=== PATIENT | male | born 1940 | race Caucasian/White ===

== ENCOUNTER 2017-01-26 18:39 | Emergency (ER) | payer OTHER, MEDICAID ==
[~2017-01-26] VITALS: Ht 188 cm; Wt 85.0 kg
[~2017-01-26 18:39] MED LIST: AMITRIPTYLINE; LISI2.5T PO; METFORMIN; PRIMIDONE
[2017-01-26 20:00] LABS: HEMOGLOBIN 14.7 g/dL (13.7-18.0)
[2017-01-26 20:12] LABS: ASPARTATE AMINO TRANSFERASE 10 U/L (15-37); BLOOD UREA NITROGEN 13 mg/dL (7-18)
[2017-01-26 20:19] LABS: IS PT STATUS REG ER OR PRE ER? YES
[2017-01-26] MEDS ORDERED: HYDROcodone/APAP 5/325 TABLET ONE (21:16)
[2017-01-26] MEDS ORDERED: METHOCARBAMOL 750 MG TABLET ONE (21:16)
[2017-01-26] MEDS ORDERED: KETOROLAC 30 MG/1 ML ONE (21:16)
[2017-01-26] MEDS ORDERED: KETOROLAC 30 MG/1 ML IVPush ONE (21:30)
[2017-01-26] MEDS ORDERED: PLEASE ENTER HEIGHT AND WEIGHT MC SCH (21:30)
[2017-01-26] MEDS ORDERED: HYDROcodone/APAP 5/325 TABLET PO ONE (21:30)
[2017-01-26] MEDS ORDERED: METHOCARBAMOL 750 MG TABLET PO ONE (21:30)
[2017-01-26 22:43] VITALS: BP 141/72
== END 2017-01-26 23:52 | disposition home or self-care (01) ==
LOC: ED 20:25
DX: S39.012A Strain of muscle, fascia and tendon of lower back, initial encounter (principal); R53.1 Weakness; I11.0 Hypertensive heart disease with heart failure; I50.9 Heart failure, unspecified; E11.9 Type 2 diabetes mellitus without complications; W19.XXXA Unspecified fall, initial encounter; Y93.89 Activity, other specified; Y99.8 Other external cause status; Y92.009 Unspecified place in unspecified non-institutional (private) residence as the place of occurrence of the external cause
CPT/HCPCS: 36415; 71010; 72110; 80053; 80162; 81003; 84484; 85025; 93005; 96374; 99285; J1885

== ENCOUNTER 2017-03-26 14:10 | Emergency (ER) | payer OTHER, MEDICAID ==
[~2017-03-26] VITALS: Ht 188 cm; Wt 82.0 kg
[2017-03-26] MEDS ORDERED: ONDANSETRON 2MG/ML, 2ML IVPush ONE (14:30)
[2017-03-26] MEDS ORDERED: SODIUM CHLORIDE FLUSH 10ML SYR IVF ONE (14:30)
[2017-03-26] MEDS ORDERED: MORPHINE SULFATE 4 MG/ML, 1ML IVPush PRN (14:30)
[2017-03-26] MEDS ORDERED: MORPHINE SULFATE 4 MG/ML, 1ML ONE (14:40)
[2017-03-26] MEDS ORDERED: ONDANSETRON 2MG/ML, 2ML ONE (14:40)
[2017-03-26 15:12] LABS: BLOOD UREA NITROGEN 11 mg/dL (7-18)
[2017-03-26] MEDS ORDERED: KETOROLAC 30 MG/1 ML ONE (16:17)
[2017-03-26] MEDS ORDERED: KETOROLAC 30 MG/1 ML IVPush ONE (16:30)
[2017-03-26 18:25] VITALS: BP 118/70
== END 2017-03-26 18:27 | disposition home or self-care (01) ==
LOC: ED 14:39
DX: S32.039A Unspecified fracture of third lumbar vertebra, initial encounter for closed fracture (principal); E11.9 Type 2 diabetes mellitus without complications; I11.0 Hypertensive heart disease with heart failure; I50.9 Heart failure, unspecified; M81.0 Age-related osteoporosis without current pathological fracture; W19.XXXA Unspecified fall, initial encounter; Y93.89 Activity, other specified; Y92.89 Other specified places as the place of occurrence of the external cause; Y99.8 Other external cause status
CPT/HCPCS: 36415; 72148; 80048; 82040; 85025; 96374; 96375; 99285; J1885; J2405

== ENCOUNTER → 2018-04-03 | Outpatient (CLI) | payer MEDICARE, MEDICAID | LOC: CFH 10:09 | PROVIDERS: ATTEND Family Medicine | DX: M48.56XA Collapsed vertebra, not elsewhere classified, lumbar region, initial encounter for fracture (principal); M51.16 Intervertebral disc disorders with radiculopathy, lumbar region; M48.061 Spinal stenosis, lumbar region without neurogenic claudication | CPT/HCPCS: 72148 ==

== ENCOUNTER 2018-06-26 11:05 | Observation (INO) | payer MEDICARE, MEDICAID ==
[~2018-06-26] VITALS: Ht 180.3 cm; Wt 77.7 kg
[2018-06-26] MEDS ORDERED: MORPHINE SULFATE 4 MG/ML, 1ML IVPush PRN (12:30)
[2018-06-26 13:27] LABS: BASOPHILS # (AUTO) 0.02 x10^3/uL (0-0.1); BASOPHILS % (AUTO) 0 % (0-1); EOSINOPHILS # (AUTO) 0.16 x10^3/uL (0-0.4); EOSINOPHILS % (AUTO) 2 % (1-7); LYMPHOCYTES # (AUTO) 1.64 x10^3/uL (1-3.4); LYMPHOCYTES % (AUTO) 18 % (22-44); MD NO; MEAN CORPUSCULAR HEMOGLOBIN 30.8 pg (27.5-34.5); MEAN CORPUSCULAR HGB CONC 34.2 g/dL (33.2-36.2); MEAN CORPUSCULAR VOLUME 90.3 fL (81-97); MEAN PLATELET VOLUME 8.5 fL (7.4-10.4); MONOCYTES # (AUTO) 0.98 x10^3/uL (0.2-0.8); MONOCYTES % (AUTO) 11 % (2-9); NEUTROPHILS # (AUTO) 6.53 x10^3/uL (1.8-6.8); NEUTROPHILS % (AUTO) 70 % (42-75); PLATELET COUNT 259 x10^3/uL (130-400); RED BLOOD COUNT 4.01 x10^6/uL (4.38-5.82); RED CELL DISTRIBUTION WIDTH 15.8 % (9.4-14.8)
[2018-06-26 13:34] LABS: INTERNATIONAL NORMALIZED RATIO 1.03 (0.93-1.1); PROTHROMBIN TIME 10.6 Seconds (9.6-11.5)
[2018-06-26 13:35] LABS: ALANINE AMINOTRANSFERASE 12 U/L (12-78); ALBUMIN 3.4 g/dL (3.4-5.0); ANION GAP 5 mmol/L (5-15); CALCIUM 8.9 mg/dL (8.5-10.1); CHLORIDE 103 mmol/L (98-107); CREATININE 0.94 mg/dL (0.7-1.3)
[2018-06-26 13:38] LABS: ALKALINE PHOSPHATASE 132 U/L (45-117); BILIRUBIN,TOTAL 0.2 mg/dL (0.2-1.0); TOTAL PROTEIN 6.7 g/dL (6.4-8.2)
[2018-06-26] MEDS ORDERED: MORPHINE SULFATE 4 MG/ML, 1ML ONE (15:14)
[2018-06-26] MEDS ORDERED: METF750T2 PO (15:22)
[2018-06-26] MEDS ORDERED: PRIM250T PO (15:22)
[2018-06-26] MEDS ORDERED: DIGO125T PO (15:22)
[2018-06-26] MEDS ORDERED: ROSU20TA PO (15:22)
[2018-06-26] MEDS ORDERED: ASPI-496 PO (15:22)
[2018-06-26] MEDS ORDERED: METO25TA91 PO (15:22)
[2018-06-26] MEDS ORDERED: LISI40TA PO (15:22)
[2018-06-26] MEDS ORDERED: METO-95 PO (15:22)
[2018-06-26] MEDS ORDERED: SODIUM CHLORIDE 0.9% 1,000 ML IV SCH (15:50)
[2018-06-26] MEDS ORDERED: GLUCAGON 1 MG IM PRN (16:00)
[2018-06-26] MEDS ORDERED: morphine SULFATE 10 MG/ML, 1ML IVPush PRN (16:00)
[2018-06-26] MEDS ORDERED: DEXTROSE 4 GM TAB.CHEW PO PRN (16:00)
[2018-06-26] MEDS ORDERED: ACETAMINOPHEN 325 MG TABLET PO PRN (16:00)
[2018-06-26] MEDS ORDERED: POLYETHYLENE GLYCOL 17 GM PACKET PO PRN (16:00)
[2018-06-26] MEDS ORDERED: ONDANSETRON ODT 4 MG PO PRN (16:00)
[2018-06-26] MEDS ORDERED: DEXTROSE 50%, 50ML SYRINGE IVPush PRN (16:00)
[2018-06-26] MEDS ORDERED: BISACODYL 10 MG SUPP PR PRN (16:00)
[2018-06-26 17:22] VITALS: BP 148/79
[2018-06-26] MEDS: INSULIN LISPRO 100 UNITS/ML, PEN SQ-INSULIN SCH ×2 (18:45→21:00)
[2018-06-26 18:58] VITALS: BP 127/66
[2018-06-26] MEDS: SODIUM CHLORIDE FLUSH 10ML SYR IVF SCH (20:57)
[2018-06-26] MEDS ORDERED: TEMPLATE NON-FORMULARY MED. (Rosuvastatin Calcium** (Crestor**) 20 MG) PO SCH (21:00)
[2018-06-26] MEDS: PRIMIDONE 250 MG TABLET PO SCH (21:00)
[2018-06-26] MEDS: ATORVASTATIN 40 MG TABLET PO SCH (21:00)
[2018-06-27 01:22] VITALS: BP 122/71
[2018-06-27 05:48] LABS: ALBUMIN 2.9 g/dL (3.4-5.0); ANION GAP 6 mmol/L (5-15); CALCIUM 8.2 mg/dL (8.5-10.1); CHLORIDE 107 mmol/L (98-107)
[2018-06-27 06:05] LABS: BASOPHILS # (AUTO) 0.03 x10^3/uL (0-0.1); BASOPHILS % (AUTO) 0 % (0-1); EOSINOPHILS # (AUTO) 0.17 x10^3/uL (0-0.4); EOSINOPHILS % (AUTO) 3 % (1-7); LYMPHOCYTES # (AUTO) 1.08 x10^3/uL (1-3.4); LYMPHOCYTES % (AUTO) 18 % (22-44); MD NO; MEAN CORPUSCULAR HEMOGLOBIN 30.2 pg (27.5-34.5); MEAN CORPUSCULAR HGB CONC 33.8 g/dL (33.2-36.2); MEAN CORPUSCULAR VOLUME 89.3 fL (81-97); MEAN PLATELET VOLUME 8.3 fL (7.4-10.4); MONOCYTES # (AUTO) 0.78 x10^3/uL (0.2-0.8); MONOCYTES % (AUTO) 13 % (2-9); NEUTROPHILS # (AUTO) 3.86 x10^3/uL (1.8-6.8); NEUTROPHILS % (AUTO) 65 % (42-75); PLATELET COUNT 235 x10^3/uL (130-400); RED BLOOD COUNT 3.68 x10^6/uL (4.38-5.82)
[2018-06-27 06:10] LABS: ALANINE AMINOTRANSFERASE 11 U/L (12-78); ALKALINE PHOSPHATASE 123 U/L (45-117); BILIRUBIN,TOTAL 0.4 mg/dL (0.2-1.0); CREATININE 0.53 mg/dL (0.7-1.3)
[2018-06-27] MEDS: INSULIN LISPRO 100 UNITS/ML, PEN SQ-INSULIN SCH ×4 (06:36→20:47)
[2018-06-27 06:43] VITALS: BP 127/62
[2018-06-27] MEDS: SODIUM CHLORIDE FLUSH 10ML SYR IVF SCH ×2 (09:00→20:43)
[2018-06-27] MEDS: METOPROLOL SUCCINATE 25 MG TAB.ER.24H PO SCH (09:28)
[2018-06-27] MEDS: PRIMIDONE 250 MG TABLET PO SCH ×2 (09:28→20:43)
[2018-06-27] MEDS: LISINOPRIL 20 MG TABLET PO SCH (09:28)
[2018-06-27] MEDS: SENNA/DOCUSATE TABLET PO SCH (09:29)
[2018-06-27] MEDS: DIGOXIN 0.125 MG TABLET PO SCH (09:29)
[2018-06-27 15:35] VITALS: BP 121/61
[2018-06-27 19:01] VITALS: BP 139/71
[2018-06-27] MEDS: ATORVASTATIN 40 MG TABLET PO SCH (20:42)
[2018-06-28 00:09] VITALS: BP 147/67
[2018-06-28] MEDS: INSULIN LISPRO 100 UNITS/ML, PEN SQ-INSULIN SCH ×4 (06:20→20:40)
[2018-06-28 06:59] VITALS: BP 143/75
[2018-06-28] MEDS: SODIUM CHLORIDE FLUSH 10ML SYR IVF SCH ×2 (09:00→20:40)
[2018-06-28] MEDS: SENNA/DOCUSATE TABLET PO SCH (09:51)
[2018-06-28] MEDS: LISINOPRIL 20 MG TABLET PO SCH (09:51)
[2018-06-28] MEDS: METOPROLOL SUCCINATE 25 MG TAB.ER.24H PO SCH (09:52)
[2018-06-28] MEDS: PRIMIDONE 250 MG TABLET PO SCH ×2 (09:52→20:40)
[2018-06-28] MEDS: DIGOXIN 0.125 MG TABLET PO SCH (09:52)
[2018-06-28] MEDS ORDERED: TRAM50TA2 PO (12:12)
[2018-06-28] MEDS ORDERED: METO25TA91 PO (12:12)
[2018-06-28 13:20] VITALS: BP 102/53
[2018-06-28 20:22] VITALS: BP 136/63
[2018-06-28] MEDS ORDERED: CALCIUM CARBONATE 500 MG TAB.CHEW PO PRN (20:30)
[2018-06-28] MEDS: ATORVASTATIN 40 MG TABLET PO SCH (20:40)
[2018-06-29 02:09] VITALS: BP 131/69
[2018-06-29] MEDS: INSULIN LISPRO 100 UNITS/ML, PEN SQ-INSULIN SCH ×2 (07:00→11:00)
[2018-06-29 07:54] VITALS: BP 127/64
[2018-06-29] MEDS: SODIUM CHLORIDE FLUSH 10ML SYR IVF SCH (09:00)
[2018-06-29] MEDS: DIGOXIN 0.125 MG TABLET PO SCH (09:15)
[2018-06-29] MEDS: SENNA/DOCUSATE TABLET PO SCH (09:15)
[2018-06-29] MEDS: METOPROLOL SUCCINATE 25 MG TAB.ER.24H PO SCH (09:16)
[2018-06-29] MEDS: PRIMIDONE 250 MG TABLET PO SCH (09:16)
[2018-06-29] MEDS: LISINOPRIL 20 MG TABLET PO SCH (09:16)
[2018-06-29 12:22] VITALS: BP 111/54
[2018-06-29] MEDS ORDERED: ASPIRIN 325 MG TABLET EC PO SCH (16:00)
[2018-06-29] MEDS ORDERED: ENOXAPARIN 40 MG/0.4 ML SQ SCH (16:00)
[2018-06-29] MEDS ORDERED: metFORMIN 850 MG TABLET PO SCH (17:00)
== END 2018-06-29 15:54 ==
LOC: ED 15:17 → EDIP 15:18 → INTOOBSV 15:18 → ED 15:49 → UNDOADMIN 15:50 → EDIP 15:50 → ED 16:03 → 4NOR 17:10
PROVIDERS: ADMIT Hospitalist; ATTEND Family Medicine
DX: S82.141A Displaced bicondylar fracture of right tibia, initial encounter for closed fracture (principal); D64.9 Anemia, unspecified; E87.1 Hypo-osmolality and hyponatremia; J98.11 Atelectasis; I10 Essential (primary) hypertension; E11.9 Type 2 diabetes mellitus without complications; R25.1 Tremor, unspecified; M81.0 Age-related osteoporosis without current pathological fracture; I25.10 Atherosclerotic heart disease of native coronary artery without angina pectoris; I25.2 Old myocardial infarction; W18.39XA Other fall on same level, initial encounter; Y93.89 Activity, other specified; Y92.89 Other specified places as the place of occurrence of the external cause; Y99.8 Other external cause status; Z79.82 Long term (current) use of aspirin
CPT/HCPCS: 36415; 71045; 73552; 73564; 73590; 73700; 80053; 80162; 82306; 82962; 83735; 85025; 85610; 85730; 93005; 96374; 96376; 97162; 97530; 99285; G0378; G8978; G8979; G8980; J2270; J7030

== ENCOUNTER 2019-05-08 19:49 | Observation (INO) | payer MEDICAID, MEDICARE ==
[~2019-05-08] VITALS: Ht 188 cm; Wt 75.9 kg
[~2019-05-08 19:49] MED LIST changes: +ASPI-496 PO; +DIGO125T PO; +LISI40TA PO; +METF750T2 PO; +METO-95 PO; +METO25TA91 PO; +PRIM250T PO; +ROSU20TA2 PO; +TRAM50TA2 PO
--- NOTE | 2019-05-08 20:04 | NUR ---
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 EMT STATED PT LIVES IN HIS CAR FOR PAST FEW MONTHS. EKG SR WITH OCCASSIONAL PAC/PVC'S, HR-70'S, B/P-123/70, SPO2 95% R/A, FSBS-101. MONITORS APPLIED, SIDERAILS UP X2, CALL LIGHT WITHIN REACH. ERP AT BEDSIDE FOR EVAL
[2019-05-08 20:30] LABS: BASOPHILS # (AUTO) 0.03 x10^3/uL (0-0.1); BASOPHILS % (AUTO) 0 % (0-1); EOSINOPHILS # (AUTO) 0.43 x10^3/uL (0-0.4); EOSINOPHILS % (AUTO) 6 % (1-7); LYMPHOCYTES # (AUTO) 1.57 x10^3/uL (1-3.4); LYMPHOCYTES % (AUTO) 23 % (22-44); MD NO; MEAN CORPUSCULAR HEMOGLOBIN 27.7 pg (27.5-34.5); MEAN CORPUSCULAR HGB CONC 32.6 g/dL (33.2-36.2); MEAN PLATELET VOLUME 8.3 fL (7.4-10.4); MONOCYTES # (AUTO) 0.83 x10^3/uL (0.2-0.8); MONOCYTES % (AUTO) 12 % (2-9); NEUTROPHILS # (AUTO) 3.91 x10^3/uL (1.8-6.8); NEUTROPHILS % (AUTO) 58 % (42-75); PLATELET COUNT 211 x10^3/uL (130-400); RED CELL DISTRIBUTION WIDTH 20.1 % (9.4-14.8)
[2019-05-08 20:41] LABS: INTERNATIONAL NORMALIZED RATIO 1.01 (0.93-1.1); PROTHROMBIN TIME 10.6 Seconds (9.6-11.5)
[2019-05-08 20:42] LABS: ALANINE AMINOTRANSFERASE 7 U/L (12-78); ALBUMIN 3.1 g/dL (3.4-5.0); ANION GAP 10 mmol/L (5-15); CALCIUM 8.5 mg/dL (8.5-10.1); CHLORIDE 104 mmol/L (98-107)
[2019-05-08 20:47] LABS: ALKALINE PHOSPHATASE 121 U/L (45-117); BILIRUBIN,TOTAL 0.2 mg/dL (0.2-1.0); CREATININE 0.89 mg/dL (0.7-1.3); TOTAL PROTEIN 6.3 g/dL (6.4-8.2); TROPONIN I < 0.015 ng/mL (0.000-0.045)
--- NOTE | 2019-05-08 20:58 | NUR ---
PT UP TO RR WITH WALKER AND STANDBY ASSIST, TOLERATED TRANSFER WELL. PROVIDED PT WITH URINE CUP FOR SAMPLE
[2019-05-08 21:40] LABS: MICROSCOPIC NOT IND
[2019-05-08 21:42] LABS: CULTURE INDICATED? NO
--- NOTE | 2019-05-08 21:52 | NUR ---
LY WITH EYES CLOSED, OPENS EYES EASILY TO VERBAL RESPOSE, DENIES NEEDS, MONITORS IN PLACE, CALL LIGHT WITHIN REACH. AWAITING ROOM FOR ADMIT
[2019-05-08] MEDS ORDERED: POLYETHYLENE GLYCOL 17 GM PACKET PO PRN (22:30)
[2019-05-08] MEDS ORDERED: BISACODYL 10 MG SUPP PR PRN (22:30)
[2019-05-08] MEDS ORDERED: ONDANSETRON ODT 4 MG PO PRN (22:30)
[2019-05-08] MEDS ORDERED: ACETAMINOPHEN 325 MG TABLET PO PRN (22:30)
[2019-05-08 22:35] VITALS: BP 137/76
[2019-05-08 23:01] LABS: HEMOGLOBIN A1C 5.4 % (4.2-6.3)
[2019-05-09 01:53] VITALS: BP 166/69
[2019-05-09 06:20] LABS: BASOPHILS # (AUTO) 0.05 x10^3/uL (0-0.1); BASOPHILS % (AUTO) 1 % (0-1); EOSINOPHILS # (AUTO) 0.39 x10^3/uL (0-0.4); EOSINOPHILS % (AUTO) 5 % (1-7); LYMPHOCYTES # (AUTO) 1.89 x10^3/uL (1-3.4); LYMPHOCYTES % (AUTO) 22 % (22-44); MD NO; MEAN CORPUSCULAR HEMOGLOBIN 28.5 pg (27.5-34.5); MEAN CORPUSCULAR VOLUME 86.4 fL (81-97); MEAN PLATELET VOLUME 8.6 fL (7.4-10.4); MONOCYTES # (AUTO) 0.84 x10^3/uL (0.2-0.8); MONOCYTES % (AUTO) 10 % (2-9); NEUTROPHILS # (AUTO) 5.29 x10^3/uL (1.8-6.8); NEUTROPHILS % (AUTO) 63 % (42-75); PLATELET COUNT 233 x10^3/uL (130-400); RED BLOOD COUNT 3.94 x10^6/uL (4.38-5.82); RED CELL DISTRIBUTION WIDTH 20.4 % (9.4-14.8)
[2019-05-09 06:28] LABS: ALANINE AMINOTRANSFERASE 8 U/L (12-78); ALBUMIN 3.3 g/dL (3.4-5.0); ANION GAP 7 mmol/L (5-15); CALCIUM 8.9 mg/dL (8.5-10.1); CHLORIDE 106 mmol/L (98-107); CREATININE 0.69 mg/dL (0.7-1.3)
[2019-05-09 06:30] LABS: ALKALINE PHOSPHATASE 132 U/L (45-117); BILIRUBIN,TOTAL 0.2 mg/dL (0.2-1.0); TOTAL PROTEIN 6.6 g/dL (6.4-8.2)
[2019-05-09 07:33] VITALS: BP 135/52
[2019-05-09] MEDS: ASPIRIN 325 MG TABLET EC PO SCH (08:11)
[2019-05-09] MEDS: PRIMIDONE 250 MG TABLET PO SCH ×2 (08:12→20:10)
[2019-05-09] MEDS: SENNA/DOCUSATE TABLET PO SCH (08:13)
[2019-05-09] MEDS: LISINOPRIL 40 MG TABLET PO SCH (08:13)
[2019-05-09] MEDS: METOPROLOL SUCCINATE 25 MG TAB.ER.24H PO SCH (08:14)
[2019-05-09] MEDS: DIGOXIN 0.125 MG TABLET PO SCH (08:16)
[2019-05-09] MEDS: metFORMIN 850 MG TABLET PO SCH ×2 (08:22→20:09)
[2019-05-09] MEDS: ENOXAPARIN 40 MG/0.4 ML SQ SCH (10:53)
[2019-05-09] MEDS: SODIUM CHLORIDE FLUSH 10ML SYR IVF SCH ×2 (10:54→20:14)
[2019-05-09 15:18] VITALS: BP 158/70
[2019-05-09 19:46] VITALS: BP 136/67
[2019-05-09] MEDS: ATORVASTATIN 80 MG TABLET PO SCH (20:14)
[2019-05-10 01:06] VITALS: BP 136/53
[2019-05-10 07:09] VITALS: BP 149/72
[2019-05-10] MEDS: ASPIRIN 325 MG TABLET EC PO SCH (08:33)
[2019-05-10] MEDS: PRIMIDONE 250 MG TABLET PO SCH ×2 (08:33→20:08)
[2019-05-10] MEDS: METOPROLOL SUCCINATE 25 MG TAB.ER.24H PO SCH (08:34)
[2019-05-10] MEDS: metFORMIN 850 MG TABLET PO SCH ×2 (08:34→20:08)
[2019-05-10] MEDS: DIGOXIN 0.125 MG TABLET PO SCH (08:34)
[2019-05-10] MEDS: LISINOPRIL 40 MG TABLET PO SCH (08:34)
[2019-05-10] MEDS: SODIUM CHLORIDE FLUSH 10ML SYR IVF SCH ×2 (08:35→20:08)
[2019-05-10] MEDS: SENNA/DOCUSATE TABLET PO SCH (09:00)
[2019-05-10 10:31] LABS: CLOSTRIDIUM DIFFICILE ANTIGEN NEGATIVE; CLOSTRIDIUM DIFFICILE TOXIN NEGATIVE (Negative)
[2019-05-10 12:08] VITALS: BP 147/69
[2019-05-10] MEDS: ENOXAPARIN 40 MG/0.4 ML SQ SCH (15:28)
[2019-05-10 19:38] VITALS: BP 141/62
[2019-05-10] MEDS: ATORVASTATIN 80 MG TABLET PO SCH (20:08)
[2019-05-11 01:15] VITALS: BP 133/65
[2019-05-11 06:47] VITALS: BP 159/71
[2019-05-11] MEDS: SENNA/DOCUSATE TABLET PO SCH (09:09)
[2019-05-11] MEDS: metFORMIN 850 MG TABLET PO SCH (09:09)
[2019-05-11] MEDS: PRIMIDONE 250 MG TABLET PO SCH (09:09)
[2019-05-11] MEDS: ASPIRIN 325 MG TABLET EC PO SCH (09:09)
[2019-05-11] MEDS: LISINOPRIL 40 MG TABLET PO SCH (09:10)
[2019-05-11] MEDS: DIGOXIN 0.125 MG TABLET PO SCH (09:10)
[2019-05-11] MEDS: METOPROLOL SUCCINATE 25 MG TAB.ER.24H PO SCH (09:10)
[2019-05-11] MEDS: SODIUM CHLORIDE FLUSH 10ML SYR IVF SCH (09:12)
[2019-05-11 12:01] VITALS: BP 165/79
[2019-05-11 13:00] VITALS: BP 139/73
[2019-05-11] MEDS: ENOXAPARIN 40 MG/0.4 ML SQ SCH (15:00)
[2019-05-11 19:29] VITALS: BP 133/69
== END 2019-05-11 19:30 | disposition left against medical advice (07) ==
LOC: ED 21:43 → INTOOBSV 21:44 → UNDOADMOB 21:44 → EDIP 21:44 → 3NE 22:19 → EDIP 22:19 → 3NE 05-11 11:16
PROVIDERS: ADMIT Internal Medicine; ATTEND Internal Medicine
DX: R53.1 Weakness (principal); R53.81 Other malaise; D64.9 Anemia, unspecified; D68.69 Other thrombophilia; J98.11 Atelectasis; E11.9 Type 2 diabetes mellitus without complications; I48.2 Chronic atrial fibrillation; I25.2 Old myocardial infarction; M81.0 Age-related osteoporosis without current pathological fracture; I11.0 Hypertensive heart disease with heart failure; I50.9 Heart failure, unspecified; I25.10 Atherosclerotic heart disease of native coronary artery without angina pectoris; F17.290 Nicotine dependence, other tobacco product, uncomplicated; Z74.2 Need for assistance at home and no other household member able to render care; Z63.8 Other specified problems related to primary support group; Z79.84 Long term (current) use of oral hypoglycemic drugs; Z79.82 Long term (current) use of aspirin; Z79.899 Other long term (current) drug therapy; Z88.1 Allergy status to other antibiotic agents; Z59.0 Homelessness
CPT/HCPCS: 36415; 70450; 71045; 80053; 80162; 81003; 83036; 84484; 85025; 85610; 85730; 87324; 93005; 96372; 97161; 97162; 97166; 97530; 99284; G0378; J1650

== ENCOUNTER 2019-11-15 07:35 | Observation (INO) | payer MEDICARE ==
[~2019-11-15] VITALS: Ht 188 cm; Wt 76.0 kg
[~2019-11-15 07:35] MED LIST changes: -METF750T2 PO; +METF750T42 PO
[2019-11-15] MEDS ORDERED: SODIUM CHLORIDE 0.9% 1,000 ML IV ONE (07:47)
[2019-11-15] MEDS ORDERED: SODIUM CHLORIDE 0.9% 1,000ML IVBOLUS ONE (08:00)
[2019-11-15 08:16] LABS: BASOPHILS # (AUTO) 0.02 x10^3/uL (0-0.1); BASOPHILS % (AUTO) 0 % (0-1); EOSINOPHILS # (AUTO) 0.03 x10^3/uL (0-0.4); EOSINOPHILS % (AUTO) 0 % (1-7); LYMPHOCYTES # (AUTO) 1.19 x10^3/uL (1-3.4); LYMPHOCYTES % (AUTO) 8 % (22-44); MD NO; MEAN CORPUSCULAR HEMOGLOBIN 30.3 pg (27.5-34.5); MEAN CORPUSCULAR HGB CONC 33.2 g/dL (33.2-36.2); MEAN PLATELET VOLUME 7.9 fL (7.4-10.4); MONOCYTES # (AUTO) 0.96 x10^3/uL (0.2-0.8); MONOCYTES % (AUTO) 6 % (2-9); NEUTROPHILS % (AUTO) 86 % (42-75); PLATELET COUNT 214 x10^3/uL (130-400); RED BLOOD COUNT 5.03 x10^6/uL (4.38-5.82); RED CELL DISTRIBUTION WIDTH 19.8 % (9.4-14.8)
[2019-11-15 08:27] LABS: ALANINE AMINOTRANSFERASE 16 U/L (12-78); ALBUMIN 3.2 g/dL (3.4-5.0); ANION GAP 6 mmol/L (5-15); CALCIUM 8.9 mg/dL (8.5-10.1); CHLORIDE 106 mmol/L (98-107); CREATININE 0.75 mg/dL (0.7-1.3)
[2019-11-15 08:31] LABS: ALKALINE PHOSPHATASE 138 U/L (45-117); BILIRUBIN,TOTAL 0.5 mg/dL (0.2-1.0); TOTAL PROTEIN 7.1 g/dL (6.4-8.2); TROPONIN I < 0.015 ng/mL (0.000-0.045)
[2019-11-15 08:33] LABS: RAPID INFLUENZA A Negative (Negative); RAPID INFLUENZA B Negative (Negative)
[2019-11-15 08:38] LABS: MICROSCOPIC AUTO
[2019-11-15] MEDS ORDERED: NALOXONE 0.4 MG/ML, 1ML ONE (08:39)
[2019-11-15 08:46] LABS: CULTURE INDICATED? NO
[2019-11-15] MEDS ORDERED: CEFTRIAXONE PMX 1GM/50ML 50 ML ONE (08:46)
[2019-11-15] MEDS ORDERED: CEFTRIAXONE PMX 1GM/50ML 50 ML IVPB ONE (09:00)
[2019-11-15] MEDS ORDERED: AZITHROMYCIN 500 MG in SODIUM CHLORIDE 0.9% 250 ML IVPB ONE (09:00)
[2019-11-15] MEDS ORDERED: ONDANSETRON 2MG/ML, 2ML ONE (09:29)
[2019-11-15] MEDS ORDERED: ACETAMINOPHEN 325 MG TABLET PO PRN (09:30)
[2019-11-15 10:59] VITALS: BP 169/75
[2019-11-15] MEDS ORDERED: SODIUM CHLORIDE FLUSH 10ML SYR IVF PRN (11:00)
[2019-11-15] MEDS: INSULIN LISPRO 100 UNITS/ML, PEN SQ-INSULIN SCH ×3 (11:00→20:39)
[2019-11-15] MEDS ORDERED: CEFTRIAXONE PMX 2GM/50ML 50 ML IV SCH (11:00)
[2019-11-15] MEDS ORDERED: ONDANSETRON 2MG/ML, 2ML IVPush PRN (11:30)
[2019-11-15] MEDS ORDERED: POTASSIUM CHLORIDE 20 MEQ TAB.ER.PRT PO ONE (11:30)
[2019-11-15] MEDS ORDERED: ONDANSETRON ODT 4 MG PO PRN (11:30)
[2019-11-15] MEDS: ENOXAPARIN 40 MG/0.4 ML SQ SCH (11:46)
[2019-11-15] MEDS: SODIUM CHLORIDE 0.9% 1,000 ML IV SCH ×2 (11:46→20:40)
[2019-11-15 12:19] VITALS: BP 166/82
[2019-11-15] MEDS: metFORMIN 850 MG TABLET PO SCH (17:06)
[2019-11-15 19:19] VITALS: BP 160/74
[2019-11-15] MEDS: ATORVASTATIN 40 MG TABLET PO SCH (20:39)
[2019-11-15] MEDS: PRIMIDONE 250 MG TABLET PO SCH (20:39)
[2019-11-16 02:20] VITALS: BP 123/57
[2019-11-16 05:48] LABS: BASOPHILS # (AUTO) 0.03 x10^3/uL (0-0.1); BASOPHILS % (AUTO) 0 % (0-1); EOSINOPHILS # (AUTO) 0.23 x10^3/uL (0-0.4); EOSINOPHILS % (AUTO) 3 % (1-7); LYMPHOCYTES # (AUTO) 1.47 x10^3/uL (1-3.4); LYMPHOCYTES % (AUTO) 19 % (22-44); MD NO; MEAN CORPUSCULAR HEMOGLOBIN 30.1 pg (27.5-34.5); MEAN CORPUSCULAR HGB CONC 33.1 g/dL (33.2-36.2); MEAN CORPUSCULAR VOLUME 90.9 fL (81-97); MEAN PLATELET VOLUME 8.1 fL (7.4-10.4); MONOCYTES # (AUTO) 0.77 x10^3/uL (0.2-0.8); MONOCYTES % (AUTO) 10 % (2-9); NEUTROPHILS # (AUTO) 5.19 x10^3/uL (1.8-6.8); NEUTROPHILS % (AUTO) 68 % (42-75); PLATELET COUNT 200 x10^3/uL (130-400); RED BLOOD COUNT 4.41 x10^6/uL (4.38-5.82); RED CELL DISTRIBUTION WIDTH 19.9 % (9.4-14.8)
[2019-11-16 05:50] LABS: ANION GAP 6 mmol/L (5-15); CALCIUM 8.5 mg/dL (8.5-10.1); CHLORIDE 111 mmol/L (98-107)
[2019-11-16 05:52] LABS: CREATININE 0.67 mg/dL (0.7-1.3)
[2019-11-16] MEDS: INSULIN LISPRO 100 UNITS/ML, PEN SQ-INSULIN SCH ×4 (07:00→20:32)
[2019-11-16 08:29] VITALS: BP 161/74
[2019-11-16] MEDS: metFORMIN 850 MG TABLET PO SCH ×2 (09:02→16:45)
[2019-11-16] MEDS: DIGOXIN 0.125 MG TABLET PO SCH (09:02)
[2019-11-16] MEDS: ASPIRIN 325 MG TABLET PO SCH (09:02)
[2019-11-16] MEDS: LISINOPRIL 40 MG TABLET PO SCH (09:02)
[2019-11-16] MEDS: CEFTRIAXONE PMX 2GM/50ML 50 ML IV SCH (09:03)
[2019-11-16] MEDS: PRIMIDONE 250 MG TABLET PO SCH ×2 (09:04→20:32)
[2019-11-16] MEDS: METOPROLOL SUCCINATE 25 MG TAB.ER.24H PO SCH (09:07)
[2019-11-16] MEDS: ENOXAPARIN 40 MG/0.4 ML SQ SCH (11:34)
[2019-11-16] MEDS ORDERED: FERR-46 PO (12:38)
[2019-11-16] MEDS: SODIUM CHLORIDE 0.9% 1,000 ML IV SCH (13:45)
[2019-11-16 14:52] VITALS: BP 121/67
[2019-11-16 19:48] VITALS: BP 111/62
[2019-11-16] MEDS: ATORVASTATIN 40 MG TABLET PO SCH (20:32)
[2019-11-16] MEDS: DOXYCYCLINE 100MG TABLET PO SCH (20:32)
[2019-11-17 00:30] VITALS: BP 122/66
[2019-11-17] MEDS: SODIUM CHLORIDE 0.9% 1,000 ML IV SCH (06:08)
[2019-11-17 06:13] LABS: BASOPHILS # (AUTO) 0.02 x10^3/uL (0-0.1); BASOPHILS % (AUTO) 0 % (0-1); EOSINOPHILS # (AUTO) 0.33 x10^3/uL (0-0.4); EOSINOPHILS % (AUTO) 5 % (1-7); LYMPHOCYTES # (AUTO) 1.59 x10^3/uL (1-3.4); LYMPHOCYTES % (AUTO) 23 % (22-44); MD NO; MEAN CORPUSCULAR HEMOGLOBIN 30.1 pg (27.5-34.5); MEAN CORPUSCULAR HGB CONC 33.1 g/dL (33.2-36.2); MEAN CORPUSCULAR VOLUME 90.9 fL (81-97); MEAN PLATELET VOLUME 8.6 fL (7.4-10.4); MONOCYTES # (AUTO) 0.61 x10^3/uL (0.2-0.8); MONOCYTES % (AUTO) 9 % (2-9); NEUTROPHILS # (AUTO) 4.32 x10^3/uL (1.8-6.8); NEUTROPHILS % (AUTO) 63 % (42-75); PLATELET COUNT 193 x10^3/uL (130-400); RED BLOOD COUNT 4.02 x10^6/uL (4.38-5.82); RED CELL DISTRIBUTION WIDTH 19.5 % (9.4-14.8)
[2019-11-17 06:24] LABS: ANION GAP 5 mmol/L (5-15); CALCIUM 8.1 mg/dL (8.5-10.1); CHLORIDE 111 mmol/L (98-107); CREATININE 0.67 mg/dL (0.7-1.3)
[2019-11-17] MEDS: INSULIN LISPRO 100 UNITS/ML, PEN SQ-INSULIN SCH (07:00)
[2019-11-17 07:20] VITALS: BP 142/65
[2019-11-17] MEDS: metFORMIN 850 MG TABLET PO SCH ×2 (08:10→17:29)
[2019-11-17] MEDS: DOXYCYCLINE 100MG TABLET PO SCH ×2 (08:10→20:12)
[2019-11-17] MEDS: ASPIRIN 325 MG TABLET PO SCH (08:10)
[2019-11-17] MEDS: DIGOXIN 0.125 MG TABLET PO SCH (08:10)
[2019-11-17] MEDS: LISINOPRIL 40 MG TABLET PO SCH (08:10)
[2019-11-17] MEDS: PRIMIDONE 250 MG TABLET PO SCH ×2 (08:10→20:11)
[2019-11-17] MEDS: METOPROLOL SUCCINATE 25 MG TAB.ER.24H PO SCH (08:10)
[2019-11-17] MEDS: CEFTRIAXONE PMX 2GM/50ML 50 ML IV SCH (10:40)
[2019-11-17] MEDS: ENOXAPARIN 40 MG/0.4 ML SQ SCH (11:27)
[2019-11-17 13:38] VITALS: BP 119/66
[2019-11-17 19:14] VITALS: BP 153/69
[2019-11-17] MEDS: ATORVASTATIN 40 MG TABLET PO SCH (20:12)
[2019-11-18 00:36] VITALS: BP 145/72
[2019-11-18 06:42] LABS: BASOPHILS # (AUTO) 0.02 x10^3/uL (0-0.1); BASOPHILS % (AUTO) 0 % (0-1); EOSINOPHILS % (AUTO) 5 % (1-7); LYMPHOCYTES # (AUTO) 1.37 x10^3/uL (1-3.4); LYMPHOCYTES % (AUTO) 21 % (22-44); MD NO; MEAN CORPUSCULAR HEMOGLOBIN 30.6 pg (27.5-34.5); MEAN CORPUSCULAR HGB CONC 33.3 g/dL (33.2-36.2); MEAN CORPUSCULAR VOLUME 91.8 fL (81-97); MEAN PLATELET VOLUME 8.4 fL (7.4-10.4); MONOCYTES # (AUTO) 0.59 x10^3/uL (0.2-0.8); MONOCYTES % (AUTO) 9 % (2-9); NEUTROPHILS % (AUTO) 65 % (42-75); PLATELET COUNT 221 x10^3/uL (130-400); RED BLOOD COUNT 4.15 x10^6/uL (4.38-5.82); RED CELL DISTRIBUTION WIDTH 19.2 % (9.4-14.8)
[2019-11-18 06:56] LABS: ANION GAP 5 mmol/L (5-15); CALCIUM 8.4 mg/dL (8.5-10.1); CHLORIDE 108 mmol/L (98-107); CREATININE 0.74 mg/dL (0.7-1.3)
[2019-11-18 07:49] VITALS: BP 145/69
[2019-11-18] MEDS: DOXYCYCLINE 100MG TABLET PO SCH (08:45)
[2019-11-18] MEDS: DIGOXIN 0.125 MG TABLET PO SCH (08:45)
[2019-11-18] MEDS: LISINOPRIL 40 MG TABLET PO SCH (08:45)
[2019-11-18] MEDS: ASPIRIN 325 MG TABLET PO SCH (08:46)
[2019-11-18] MEDS: metFORMIN 850 MG TABLET PO SCH (08:46)
[2019-11-18] MEDS: PRIMIDONE 250 MG TABLET PO SCH (08:46)
[2019-11-18] MEDS: METOPROLOL SUCCINATE 25 MG TAB.ER.24H PO SCH (08:46)
[2019-11-18] MEDS: CEFTRIAXONE PMX 2GM/50ML 50 ML IV SCH (09:21)
[2019-11-18] MEDS ORDERED: DOXY100T PO (10:44)
[2019-11-18] MEDS ORDERED: AMOX500T PO (10:44)
[2019-11-18] MEDS: ENOXAPARIN 40 MG/0.4 ML SQ SCH (11:00)
== END 2019-11-18 12:42 | disposition home or self-care (01) ==
LOC: ED 09:21 → INTOOBSV 09:22 → EDIP 09:22 → 3N 10:45 → DCLOUNGE 11-18 12:21
PROVIDERS: ADMIT Internal Medicine; ATTEND Family Medicine
DX: J15.9 Unspecified bacterial pneumonia (principal); R33.9 Retention of urine, unspecified; I48.0 Paroxysmal atrial fibrillation; G93.41 Metabolic encephalopathy; E87.1 Hypo-osmolality and hyponatremia; I11.0 Hypertensive heart disease with heart failure; E87.6 Hypokalemia; I50.9 Heart failure, unspecified; E11.9 Type 2 diabetes mellitus without complications; E78.5 Hyperlipidemia, unspecified; R53.81 Other malaise; M81.0 Age-related osteoporosis without current pathological fracture; I25.2 Old myocardial infarction; R62.7 Adult failure to thrive; I25.10 Atherosclerotic heart disease of native coronary artery without angina pectoris; F17.210 Nicotine dependence, cigarettes, uncomplicated; Z79.82 Long term (current) use of aspirin; Z79.84 Long term (current) use of oral hypoglycemic drugs
CPT/HCPCS: 36415; 71045; 80048; 80053; 80162; 81001; 82962; 83036; 83605; 83735; 83880; 84145; 84484; 85025; 87040; 87400; 93005; 96365; 96366; 96372; 99285; G0378; J0696; J1650; J1815; J7030

== ENCOUNTER 2020-10-21 12:20 | Emergency (ER) | payer MEDICARE ==
[~2020-10-21] VITALS: Ht 188 cm; Wt 85.7 kg
[~2020-10-21 12:20] MED LIST changes: +AMOX500T PO; -DIGO125T PO; +DIGO125T85 PO; +DOXY100T PO; +FERR-46 PO
[2020-10-21] MEDS ORDERED: ASPI325T17 PO (12:41)
--- NOTE | 2020-10-21 12:58 | NUR ---
PT BIBA FOR FALL FROM WHEELCHAIR, C/O RIGHT KNEE PAIN, ALSO REPORTS OCCASIONAL COUGH, DIARRHEA AND WEAKNESS X1 WEEK. PT ON CARDIAC AND VITALS MONITORS, FALL PRECAUTIONS IN PLACE, CALL LIGHT WITHIN REACH.
--- NOTE | 2020-10-21 13:23 | NUR ---
REPORT RECEIVED FROM EVE RAMOS. WILDA STROUD AT BEDSIDE. PT RESTING ON GURNEY W/ CALL LIGHT IN REACH AND SIDE RAILS UPX2. RESP EVEN AND UNLABORED, YESSY.
--- NOTE | 2020-10-21 13:30 | NUR ---
PT PROVIDED W/ URINAL AND EDUCATED ON NEED FOR SAMPLE.
--- NOTE | 2020-10-21 13:34 | NUR ---
RAD IN ROOM.
--- NOTE | 2020-10-21 13:49 | NUR ---
LAB IN ROOM.
--- NOTE | 2020-10-21 13:49 | NUR ---
ASKED PT ABOUT MEDICAL HX, ANSWERED W/ NAME OF INSURANCES, UNSURE OF HX.
[2020-10-21 14:10] LABS: BASOPHILS % (AUTO) 0 % (0-1); EOSINOPHILS % (AUTO) 1 % (1-7); LYMPHOCYTES % (AUTO) 9 % (22-44); MEAN CORPUSCULAR HEMOGLOBIN 31.6 pg (27.5-34.5); MEAN CORPUSCULAR HGB CONC 33.4 g/dL (33.2-36.2); MEAN PLATELET VOLUME 7.8 fL (7.4-10.4); MONOCYTES % (AUTO) 8 % (2-9); NEUTROPHILS % (AUTO) 82 % (42-75); PLATELET COUNT 221 x10^3/uL (130-400); RED BLOOD COUNT 4.37 x10^6/uL (4.38-5.82); RED CELL DISTRIBUTION WIDTH 14.7 % (9.4-14.8)
[2020-10-21 14:11] LABS: ALANINE AMINOTRANSFERASE 22 U/L (12-78); ALBUMIN 3.8 g/dL (3.4-5.0); ANION GAP 6 mmol/L (5-15); CALCIUM 9.2 mg/dL (8.5-10.1); CHLORIDE 102 mmol/L (98-107); CREATININE 1.11 mg/dL (0.7-1.3)
[2020-10-21 14:14] LABS: ALKALINE PHOSPHATASE 189 U/L (45-117); BILIRUBIN,TOTAL 0.4 mg/dL (0.2-1.0); MD NO; TOTAL PROTEIN 7.9 g/dL (6.4-8.2)
--- NOTE | 2020-10-21 14:14 | NUR ---
PT REMINDED NEED FOR URINE SAMPLE.
--- NOTE | 2020-10-21 14:33 | NUR ---
PT ASSISTED W/ URINAL. URINE COLLECTED AND SENT TO LAB.
[2020-10-21 14:49] LABS: MICROSCOPIC AUTO
[2020-10-21 15:06] VITALS: BP 125/68
--- NOTE | 2020-10-21 15:26 | NUR ---
PT REQUESTING THIS RN MOVE HIS COFFEE CUP AND PHONE, NO COFFEE CUP OR PHONE PRESENT. PT REQUESTING TO GO HOME. AT BEDSIDE.
--- NOTE | 2020-10-21 16:22 | NUR ---
20 MINUTES SPENT IN ROOM ENCOURAGING PT TO STAY. PT STATES THAT HE WANTS TO GO HOME AND GET OFF ED GURNEY. PT WANTS TO LEAVE AGAINST MEDICAL ADVICE. ADDITIONAL 20 MINUTES SPENT DRESSING PT DUE TO PTS WEAKNESS. SPOKE W/ PTS ROOMMATE WALTER AT [phone], STATES HE IS HOME AND CAN ASSIST PT INTO HOME FROM [facility]. PT WEARING NON SLIP SOCKS, NO SHOES BROUGHT W/ PT. PRODUCTION POTTER IN ROOM FOR KNEE IMBOLIZER.
--- NOTE | 2020-10-21 16:30 | NUR ---
IN ROOM AGAIN TO CONFIRM PT WISHES TO LEAVE AMA. PT STILL REFUSING TREATMENT.
--- NOTE | 2020-10-21 16:57 | NUR ---
pt. refused for this tech to apply knee immobilizer.
--- NOTE | 2020-10-21 17:00 | NUR ---
PT ASSISTED INTO WHEELCHAIR W/ ASSISTANCE OF 2 ED TECHS. PT NEEDS MUCH INSTRUCTION AND PHYSICAL SUPPORT. VERIFIED W/ PT AGAIN THAT THEY WANT TO GO HOME. PT STILL INSISTING ON LEAVING. AMA FORM SIGNED. PT PROVIDED W/ TAXI VOUCHER. VERIFIED W/ PTS ROOMMATE WALTER THAT HE WILL BE THERE TO MEET PT FROM [employer]. VERBALIZED UNDERSTANDING OF RISKS W/ LEAVING AT THIS TIME.
== END 2020-10-21 17:09 | disposition left against medical advice (07) ==
LOC: ED 15:40
DX: M25.461 Effusion, right knee (principal); R53.1 Weakness; R09.02 Hypoxemia; Z20.828 Contact with and (suspected) exposure to other viral communicable diseases; R94.31 Abnormal electrocardiogram [ECG] [EKG]; E11.9 Type 2 diabetes mellitus without complications; I11.0 Hypertensive heart disease with heart failure; I50.9 Heart failure, unspecified; I48.91 Unspecified atrial fibrillation; I25.2 Old myocardial infarction; W07.XXXA Fall from chair, initial encounter; Y93.89 Activity, other specified; Y92.009 Unspecified place in unspecified non-institutional (private) residence as the place of occurrence of the external cause; Y99.8 Other external cause status
CPT/HCPCS: 36415; 71045; 80053; 81001; 85025; 87077; 87086; 87186; 87635; 93005; 99285